=== PATIENT | female | born 2000 | race Caucasian/White ===

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

== ENCOUNTER 2022-01-28 10:33 | Emergency (ER) | payer OTHER ==
[2022-01-28 10:42] VITALS: RESP 16; TEMP 98
[2022-01-28] MEDS ORDERED: ACETAMINOPHEN TAB 500 MG TAB PO STA (10:56)
[2022-01-28] MEDS ORDERED: ONDANSETRON ODT 4 MG TAB PO STA (10:56)
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
[2022-01-28 14:16] VITALS: BP 139/83; PULSE 83
== END 2022-01-28 14:16 | disposition home or self-care (01) ==
LOC: EC 10:33
DX: S39.011A Strain of muscle, fascia and tendon of abdomen, initial encounter (principal); V89.2XXA Person injured in unspecified motor-vehicle accident, traffic, initial encounter
CPT/HCPCS: 70450; 72125; 99284

== ENCOUNTER 2023-03-18 19:32 | Emergency (ER) | payer OTHER ==
[2023-03-18 19:51] VITALS: BP 139/91; PULSE 90; RESP 18; TEMP 97.9
--- NOTE | 2023-03-18 20:08 | ED ---
Skin/Abscess/FB HPI - General Chief complaint: Skin/Abscess/Foreign Body Stated complaint: tick in belly Time Seen by Provider: 03/18/23 20:07 Source: patient, RN notes reviewed Mode of arrival: ambulatory Limitations: no limitations - History of Present Illness Initial comments: 22-year-old female presents emergency Department with chief complaint of tick on her abdomen. Patient states that she was laying on the grass yesterday states that she was discharging felt some better abdomen. Patient states that she knows a red spot in which she believes is a tick. - Related Data Previous Rx's Medication Instructions Recorded methocarbamoL [Robaxin] 500 mg PO BID PRN 4 Days #8 tab 01/28/22 Allergies Allergy/AdvReac Type Severity Reaction Status Date / Time No Known Allergies Allergy Verified 03/18/23 19:45 Review of Systems ROS Statement: Those systems with pertinent positive or pertinent negative responses have been documented in the HPI. ROS Other: All systems not noted in ROS Statement are negative. Past Medical History Past Medical History: No Reported History History of Any Multi-Drug Resistant Organisms: None Reported Past Surgical History: No Surgical Hx Reported Additional Past Surgical History / Comment(s): oral surgery Past Psychological History: No Psychological Hx Reported Smoking Status: Never smoker Past Alcohol Use History: None Reported Past Drug Use History: Marijuana General Exam Limitations: no limitations General appearance: alert, in no apparent distress Head exam: Present: atraumatic, normocephalic, normal inspection Eye exam: Present: normal appearance, PERRL, EOMI. Absent: scleral icterus, conjunctival injection, periorbital swelling ENT exam: Present: normal exam, normal oropharynx, mucous membranes moist Neck exam: Present: normal inspection, full ROM. Absent: tenderness, meningismus, lymphadenopathy Respiratory exam: Present: normal lung sounds bilaterally. Absent: respiratory distress, wheezes, rales, rhonchi, stridor Cardiovascular Exam: Present: regular rate, normal rhythm, normal heart sounds. Absent: systolic murmur, diastolic murmur, rubs, gallop, clicks GI/Abdominal exam: Present: other (Lower abdomen there is a small uptake noted with surrounding erythema) Course Vital Signs 03/18/23 19:43 Temperature 97.9 F Pulse Rate 90 Respiratory 18 Rate Blood Pressure 139/91 O2 Sat by Pulse 97 Oximetry Procedures - Procedures Initial comment: Lower abdomen using tick removal to tool, tick was removed with no complications in whole Medical Decision Making - Medical Decision Making Was pt. sent in by a medical professional or institution (LOUISE Aguirre, TRANSMISSION WORKER, urgent care, hospital, or fci...) When possible be specific @ -No Did you speak to anyone other than the patient for history (EMS, parent, family, police, friend...)? What history was obtained from this source @ -No Did you review nursing and triage notes (agree or disagree)? Why? @ -I reviewed and agree with nursing and triage notes Were old charts reviewed (outside hosp., previous admission, EMS record, old EKG, old radiological studies, urgent care reports/EKG's, fci records)? Report findings @ -No old charts were reviewed Differential Diagnosis (chest pain, altered mental status, abdominal pain women, abdominal pain men, vaginal bleeding, weakness, fever, dyspnea, syncope, headache, dizziness, GI bleed, back pain, seizure, CVA, palpatations, mental health, musculoskeletal)? @ -Tick bite, abscess EKG interpreted by me (3pts min.). @ -None] X-rays interpreted by me (1pt min.). @ -None done CT interpreted by me (1pt min.). @ -None done U/S interpreted by me (1pt. min.). @ -None done What testing was considered but not performed or refused? (CT, X-rays, U/S, labs)? Why? @ -None What meds were considered but not given or refused? Why? @ -None Did you discuss the management of the patient with other professionals (professionals i.e. LOUISE Aguirre, TRANSMISSION WORKER, lab, RT, psych nurse, outreach and education social worker, director trial, teacher, first officer, transport manager)? Give summary @ -No Was smoking cessation discussed for >3mins.? @ -No Was critical care preformed (if so, how long)? @ -No Were there social determinants of health that impacted care today? How? (Homelessness, low income, unemployed, alcoholism, drug addiction, transportation, low edu. Level, literacy, decrease access to med. care, skilled nursing, rehab)? @ -No Was there de-escalation of care discussed even if they declined (Discuss DNR or withdrawal of care, Hospice)? DNR status @ -No What co-morbidities impacted this encounter? (DM, HTN, Smoking, COPD, CAD, Cancer, CVA, ARF, Chemo, Hep., AIDS, mental health diagnosis, sleep apnea, morbid obesity)? @ -None Was patient admitted / discharged? Hospital course, mention meds given and route, prescriptions, significant lab abnormalities, going to OR and other pertinent info. @ -[Discharged patient had tick removed. Patient is concerned about possible Lyme disease and there was surrounding erythema patient was given prophylactic dose. Undiagnosed new problem with uncertain prognosis? @ -No Drug Therapy requiring intensive monitoring for toxicity (Heparin, Nitro, Insulin, Cardizem)? @ -No Were any procedures done? @ -No Diagnosis/symptom? @ -Tick bite Acute, or Chronic, or Acute on Chronic? @ -Acute Uncomplicated or complicated Uncomplicated Side effects of treatment? @ -No Exacerbation, Progression, or Severe Exacerbation? @ -No Poses a threat to life or bodily function? How? (Chest pain, [place], [place], pneumonia, PE, COPD, DKA, ARF, appy, cholecystitis, CVA, Diverticulitis, Homicidal, Suicidal, threat to staff... and all critical care pts) @ -No Disposition Clinical Impression: Embedded tick of abdominal wall Disposition: HOME SELF-CARE Condition: Stable Instructions (If sedation given, give patient instructions): Tick Bite (ED) Additional Instructions: Please return to the Emergency Department if symptoms worsen or any other concerns. Is patient prescribed a controlled substance at d/c from ED?: No Referrals: None,Stated [Primary Care Provider] - 1-2 days Time of Disposition: 20:08
[2023-03-18] MEDS ORDERED: DOXYCYCLINE 100 MG CAP PO STA (20:09)
== END 2023-03-18 20:35 | disposition home or self-care (01) ==
LOC: EC 19:32
DX: S30.861A Insect bite (nonvenomous) of abdominal wall, initial encounter (principal); F12.90 Cannabis use, unspecified, uncomplicated; W57.XXXA Bitten or stung by nonvenomous insect and other nonvenomous arthropods, initial encounter
CPT/HCPCS: 99282

== ENCOUNTER 2023-11-23 20:07 | Inpatient (IN) | payer OTHER ==
[2023-11-23] MEDS: SODIUM CHLORIDE 0.9% 1,000 ML IV STA (21:39)
[2023-11-23 21:54] LABS: Basophils % (A) 0 %; Eosinophils # (A) 0.1 k/uL (0-0.7); Eosinophils % (A) 1 %; HCT 36.1 % (34.0-46.0); HGB 12.4 gm/dL (11.4-16.0); Lymphocytes # (A) 1.2 k/uL (1.0-4.8); Lymphocytes % (A) 17 %; MCH 30.8 pg (25.0-35.0); MCHC 34.4 g/dL (31.0-37.0); MCV 89.5 fL (80.0-100.0); Mean Platelet Volume 8.1; Monocytes # (A) 0.6 k/uL (0-1.0); Monocytes % (A) 8 %; Neutrophils # (A) 5.1 k/uL (1.3-7.7); Neutrophils % (A) 72 %; Platelet Count 198 k/uL (150-450); RBC 4.04 m/uL (3.80-5.40); RDW 12.5 % (11.5-15.5)
[2023-11-23 22:11] LABS: ALT 16 U/L (4-34); AST 22 U/L (14-36); Acetaminophen <10.0 ug/mL; African American GFR (CKD) >90 (>60 ml/min/1.73 sqM); Albumin 4.2 g/dL (3.5-5.0); Alkaline Phosphatase 54 U/L (38-126); Anion Gap 5 mmol/L; Blood Urea Nitrogen 12 mg/dL (7-17); Calcium 9.2 mg/dL (8.4-10.2); Carbon Dioxide 24 mmol/L (22-30); Chloride 106 mmol/L (98-107); Glucose 70 mg/dL (74-99); Magnesium 1.8 mg/dL (1.6-2.3); Non-African American GFR(CKD) >90 (>60 ml/min/1.73 sqM); Salicylate <1.0 mg/dL; Sodium 135 mmol/L (137-145); Total Bilirubin 0.9 mg/dL (0.2-1.3); Total Protein 6.5 g/dL (6.3-8.2)
[2023-11-23 22:41] LABS: Appearance,Urine Cloudy (Clear); Bacteria,Urine Occasional /hpf; Bilirubin,Urine Negative (Negative); Blood,Urine Small (Negative); Calcium Oxalate Crystals,Urine Few /hpf; Color,Urine Yellow; Glucose,Urine (UA) Negative (Negative); Ketones,Urine 1+ (Negative); Leukocyte Esterase,Urine Small (Negative); Mucus,Urine Many /hpf; Nitrite,Urine Negative (Negative); Protein,Urine 1+ (Negative); RBC,Urine 5 /hpf (0-5); Specific Gravity,Urine 1.036 (1.001-1.035); Squamous Epithelial Cell,Urine 4 /hpf (0-4); WBC,Urine 7 /hpf (0-5)
[2023-11-23 23:03] LABS: Amphetamine Screen,Urine Not Detected (NotDetected); Barbiturate Screen,Urine Not Detected (NotDetected); Benzodiazepines Screen,Urine Detected (NotDetected); Cocaine Screen,Urine Not Detected (NotDetected); Methadone Screen, Urine Not Detected (NotDetected); Opiate Screen,Urine Not Detected (NotDetected); Oxycodone Screen, Urine Not Detected (NotDetected); Phencyclidine Screen,Urine Not Detected (NotDetected); Tricyclic Antidepressant,Urine Not Detected (NotDetected); Urn Cannabinoid Scrn Detected (NotDetected)
--- NOTE | 2023-11-23 23:50 | CT ---
EXAMINATION TYPE: CT brain wo con DATE OF EXAM: 11/23/2023 COMPARISON: Prior CT January 28, 2022 HISTORY: Pt coming to ER for new onset seizures. Pt experienced a seizure that was witnessed by famil y. Per EMS family stated that the Tonic/Clonic seizure lasted 3-4 minutes. Pt bit her tongue. Pt admi ts to smoking concentrated marijuana prior to seizure. Pt complaining of minor nausea. CT DLP: 1109.8 mGycm. Automated Exposure Control for Dose Reduction was Utilized. TECHNIQUE: CT scan of the head is performed without contrast. FINDINGS: There is no acute intracranial hemorrhage, mass effect, or midline shift identified. The ventricles and sulci are within normal limits in size. Gary-white matter differentiation is maintain ed. Nasal septum is deviated to right of midline there is The globes are intact and the visualized si nuses are clear. IMPRESSION: No acute intracranial hemorrhage or midline shift is seen.
[2023-11-24 00:08] LABS: Glucose,Whole Blood 97 mg/dL (70-110)
[2023-11-24] MEDS ORDERED: NALOXONE 0.4 MG/ML 1 ML VIAL IV PRN (00:25)
--- NOTE | 2023-11-24 00:27 | ED ---
Seizure HPI - General Chief Complaint: Seizure Stated Complaint: seizure Time Seen by Provider: 11/23/23 20:53 Source: EMS Mode of arrival: EMS Limitations: no limitations - History of Present Illness Initial Comments: 23-year-old female presenting with chief complaint of seizure. Patient was with her mother this evening when she had a witnessed tonic-clonic seizure that lasted for about 3 to 5 minutes according to her mother. She has no history of seizures. Patient did bite her tongue. She did not lose control of her bowel or bladder. She did smoke a large amount of marijuana this evening. Following the seizure she was initially tired and confused and also a bit nauseous, symptoms have improved now. Mother also reports that yesterday when she came to the patient's house the patient was confused and there were some things spread on the ground that looked as if she had dropped them, she is concerned that she may have had a seizure at that time as well. Patient does not remember any of this. No chest pain, difficulty breathing, abdominal pain, vomiting, vision or hearing changes, numbness, tingling, weakness, headache, neck pain. - Related Data Previous Rx's Medication Instructions Recorded methocarbamoL [Robaxin] 500 mg PO BID PRN 4 Days #8 tab 01/28/22 Allergies Allergy/AdvReac Type Severity Reaction Status Date / Time No Known Allergies Allergy Verified 11/23/23 20:25 Review of Systems ROS Statement: Those systems with pertinent positive or pertinent negative responses have been documented in the HPI. ROS Other: All systems not noted in ROS Statement are negative. Past Medical History Past Medical History: No Reported History History of Any Multi-Drug Resistant Organisms: None Reported Past Surgical History: No Surgical Hx Reported Additional Past Surgical History / Comment(s): oral surgery Past Psychological History: No Psychological Hx Reported Smoking Status: Never smoker Past Alcohol Use History: None Reported Past Drug Use History: Marijuana General Exam Limitations: no limitations General appearance: alert, in no apparent distress Head exam: Present: atraumatic, normocephalic, normal inspection Eye exam: Present: normal appearance, PERRL, EOMI. Absent: scleral icterus, conjunctival injection, periorbital swelling Neck exam: Present: normal inspection. Absent: tenderness Respiratory exam: Present: normal lung sounds bilaterally. Absent: respiratory distress, wheezes, rales, rhonchi, stridor Cardiovascular Exam: Present: regular rate, normal rhythm, normal heart sounds. Absent: systolic murmur, diastolic murmur, rubs, gallop, clicks Extremities exam: Present: normal inspection, full ROM Neurological exam: Present: alert, oriented X3 Expanded Patient oriented to: Present: person, place, time Speech: Present: fluid speech Cranial nerves: EOM's Intact: Normal Cerebellar function: Finger to Nose: Normal, Heel to Saavedra: Normal Sensory exam: Upper Extremity Light Touch: Normal, Lower Extremity Light Touch: Normal Motor strength exam: RUE: 5, LUE: 5, RLE: 5, LLE: 5 Eye Response: (4) open spontaneously Motor Response: (6) obeys commands Verbal Response: (5) oriented Nettie Total: 15 Psychiatric exam: Present: normal affect, normal mood Skin exam: Present: warm, dry Course Vital Signs 11/23/23 11/24/23 20:18 01:27 Temperature 98.9 F Pulse Rate 93 64 Respiratory 18 16 Rate Blood Pressure 120/75 110/59 O2 Sat by Pulse 100 Oximetry Medical Decision Making - Medical Decision Making Was pt. sent in by a medical professional or institution (, PA, INTERNAL SALES, urgent care, hospital, or retirement...) When possible be specific @ -No Did you speak to anyone other than the patient for history (EMS, parent, family, police, friend...)? What history was obtained from this source @ -Mother at bedside Did you review nursing and triage notes (agree or disagree)? Why? @ -I reviewed and agree with nursing and triage notes Were old charts reviewed (outside hosp., previous admission, EMS record, old EKG, old radiological studies, urgent care reports/EKG's, retirement records)? Report findings @ -No old charts were reviewed Differential Diagnosis (chest pain, altered mental status, abdominal pain women, abdominal pain men, vaginal bleeding, weakness, fever, dyspnea, syncope, headache, dizziness, GI bleed, back pain, seizure, CVA, palpatations, mental health, musculoskeletal)? @ -MDM Differential Seizure: Recurrent seizure disorder, febrile seizure, alcohol withdrawal, stimulants, meningitis, encephalitis, intercranial hemorrhage, intracranial tumor, stroke, eclampsia, thyrotoxicosis, hypocalcemia, hyponatremia, hypernatremia, hy pomagnesemia, psychogenic this is not meant to be an all-inclusive list EKG interpreted by me (3pts min.). @ -As above X-rays interpreted by me (1pt min.). @ -None done CT interpreted by me (1pt min.). @ -CT shows no acute intracranial hemorrhage or midline shift U/S interpreted by me (1pt. min.). @ -None done What testing was considered but not performed or refused? (CT, X-rays, U/S, lab s)? Why? @ -None What meds were considered but not given or refused? Why? @ -None Did you discuss the management of the patient with other professionals (professionals i.e. DrBrock, PA, INTERNAL SALES, lab, RT, psych nurse, social media intern, business rules developer, teacher, financial services officer, mental health case manager)? Give summary @ -I spoke with Dr. Kenney who accepts admission Was smoking cessation discussed for >3mins.? @ -No Was critical care preformed (if so, how long)? @ -No Were there social determinants of health that impacted care today? How? (Homelessness, low income, unemployed, alcoholism, drug addiction, transportation, low edu. Level, literacy, decrease access to med. care, snf, rehab)? @ -No Was there de-escalation of care discussed even if they declined (Discuss DNR or withdrawal of care, Hospice)? DNR status @ -No What co-morbidities impacted this encounter? (DM, HTN, Smoking, COPD, CAD, Cancer, CVA, ARF, Chemo, Hep., AIDS, mental health diagnosis, sleep apnea, morbid obesity)? @ -None Was patient admitted / discharged? Hospital course, mention meds given and route, prescriptions, significant lab abnormalities, going to OR and other pertinent info. @ -23-year-old female presenting for evaluation after seizure this evening. Patient has no history of seizures. History and physical examination are conduc leisa, there are no focal neurological deficits. No leukocytosis or anemia. Glucose initially 70, recheck 97. CMP is unremarkable. Urine shows signs of contamination. Negative hCG. Urine toxicology positive for benzodiazepine and marijuana. Negative salicylate and acetaminophen level. Considering this is the patient's first seizure and she may have had a seizure less than 24 hours ago she will be admitted for evaluation by neurology. She is agreeable with this plan. I discussed this case with my attending Dr. Pratt Undiagnosed new problem with uncertain prognosis? @ -No Drug Therapy requiring intensive monitoring for toxicity (Heparin, Nitro, Insulin, Cardizem)? @ -No Were any procedures done? @ -No Diagnosis/symptom? @ -New onset seizure Acute, or Chronic, or Acute on Chronic? @ -Acute Uncomplicated (without systemic symptoms) or Complicated (systemic symptoms)? @ -Complicated Side effects of treatment? @ -No Exacerbation, Progression, or Severe Exacerbation? @ -No Poses a threat to life or bodily function? How? (Chest pain, [place], [place], pneumonia, PE, COPD, DKA, ARF, appy, cholecystitis, CVA, Diverticulitis, Homicidal, Suicidal, threat to staff... and all critical care pts) @ -Yes - Lab Data Result diagrams: 11/23/23 21:39 11/23/23 21:39 Lab Results 11/23/23 11/23/23 11/23/23 Range/Units 21:09 21:09 21:39 WBC 7.0 (3.8-10.6) k/uL RBC 4.04 (3.80-5.40) m/uL Hgb 12.4 (11.4-16.0) gm/dL Hct 36.1 (34.0-46.0) % MCV 89.5 (80.0-100.0) fL MCH 30.8 (25.0-35.0) pg MCHC 34.4 (31.0-37.0) g/dL RDW 12.5 (11.5-15.5) % Plt Count 198 (150-450) k/uL MPV 8.1 Neutrophils % 72 % Lymphocytes % 17 % Monocytes % 8 % Eosinophils % 1 % Basophils % 0 % Neutrophils # 5.1 (1.3-7.7) k/uL Lymphocytes # 1.2 (1.0-4.8) k/uL Monocytes # 0.6 (0-1.0) k/uL Eosinophils # 0.1 (0-0.7) k/uL Basophils # 0.0 (0-0.2) k/uL Sodium (137-145) mmol/L Potassium (3.5-5.1) mmol/L Chloride (98-107) mmol/L Carbon Dioxide (22-30) mmol/L Anion Gap mmol/L BUN (7-17) mg/dL Creatinine (0.52-1.04) mg/dL Est GFR (CKD-EPI)AfAm (>60 ml/min/1.73 sqM) Est GFR (CKD-EPI)NonAf (>60 ml/min/1.73 sqM) Glucose (74-99) mg/dL POC Glucose (mg/dL) (70-110) mg/dL POC Glu Moisture Machine Tender ID Calcium (8.4-10.2) mg/dL Magnesium (1.6-2.3) mg/dL Total Bilirubin (0.2-1.3) mg/dL AST (14-36) U/L ALT (4-34) U/L Alkaline Phosphatase (38-126) U/L Total Protein (6.3-8.2) g/dL Albumin (3.5-5.0) g/dL Urine Color Yellow Urine Appearance Cloudy H (Clear) Urine pH 6.0 (5.0-8.0) Ur Specific [place] 1.036 H (1.001-1.035) Urine Protein 1+ H (Negative) Urine Glucose (UA) Negative (Negative) Urine Ketones 1+ H (Negative) Urine Blood Small H (Negative) Urine Nitrite Negative (Negative) Urine Bilirubin Negative (Negative) Urine Urobilinogen 2.0 (<2.0) mg/dL Ur Leukocyte Esterase Small H (Negative) Urine RBC 5 (0-5) /hpf Urine WBC 7 H (0-5) /hpf Ur Squamous Epith Cells 4 (0-4) /hpf Calcium Oxalate Crystal Few H (None) /hpf Urine Bacteria Occasional H (None) /hpf Urine Mucus Many H (None) /hpf Urine HCG, Qual Not Detected (Not Detectd) Salicylates mg/dL Urine Opiates Screen Not Detected (NotDetected) Ur Oxycodone Screen Not Detected (NotDetected) Urine Methadone Screen Not Detected (NotDetected) Acetaminophen ug/mL Ur Barbiturates Screen Not Detected (NotDetected) U Tricyclic Antidepress Not Detected (NotDetected) Ur Phencyclidine Scrn Not Detected (NotDetected) Ur Amphetamines Screen Not Detected (NotDetected) U Methamphetamines Scrn Not Detected (NotDetected) U Benzodiazepines Scrn Detected H (NotDetected) Urine Cocaine Screen Not Detected (NotDetected) U Marijuana (THC) Screen Detected H (NotDetected) 11/23/23 11/24/23 Range/Units 21:39 00:06 WBC (3.8-10.6) k/uL RBC (3.80-5.40) m/uL Hgb (11.4-16.0) gm/dL Hct (34.0-46.0) % MCV (80.0-100.0) fL MCH (25.0-35.0) pg MCHC (31.0-37.0) g/dL RDW (11.5-15.5) % Plt Count (150-450) k/uL MPV Neutrophils % % Lymphocytes % % Monocytes % % Eosinophils % % Basophils % % Neutrophils # (1.3-7.7) k/uL Lymphocytes # (1.0-4.8) k/uL Monocytes # (0-1.0) k/uL Eosinophils # (0-0.7) k/uL Basophils # (0-0.2) k/uL Sodium 135 L (137-145) mmol/L Potassium 4.0 (3.5-5.1) mmol/L Chloride 106 (98-107) mmol/L Carbon Dioxide 24 (22-30) mmol/L Anion Gap 5 mmol/L BUN 12 (7-17) mg/dL Creatinine 0.72 (0.52-1.04) mg/dL Est GFR (CKD-EPI)AfAm >90 (>60 ml/min/1.73 sqM) Est GFR (CKD-EPI)NonAf >90 (>60 ml/min/1.73 sqM) Glucose 70 L (74-99) mg/dL POC Glucose (mg/dL) 97 (70-110) mg/dL POC Glu Moisture Machine Tender ID David Mariscal Calcium 9.2 (8.4-10.2) mg/dL Magnesium 1.8 (1.6-2.3) mg/dL Total Bilirubin 0.9 (0.2-1.3) mg/dL AST 22 (14-36) U/L ALT 16 (4-34) U/L Alkaline Phosphatase 54 (38-126) U/L Total Protein 6.5 (6.3-8.2) g/dL Albumin 4.2 (3.5-5.0) g/dL Urine Color Urine Appearance (Clear) Urine pH (5.0-8.0) Ur Specific [place] (1.001-1.035) Urine Protein (Negative) Urine Glucose (UA) (Negative) Urine Ketones (Negative) Urine Blood (Negative) Urine Nitrite (Negative) Urine Bilirubin (Negative) Urine Urobilinogen (<2.0) mg/dL Ur Leukocyte Esterase (Negative) Urine RBC (0-5) /hpf Urine WBC (0-5) /hpf Ur Squamous Epith Cells (0-4) /hpf Calcium Oxalate Crystal (None) /hpf Urine Bacteria (None) /hpf Urine Mucus (None) /hpf Urine HCG, Qual (Not Detectd) Salicylates <1.0 mg/dL Urine Opiates Screen (NotDetected) Ur Oxycodone Screen (NotDetected) Urine Methadone Screen (NotDetected) Acetaminophen <10.0 ug/mL Ur Barbiturates Screen (NotDetected) U Tricyclic Antidepress (NotDetected) Ur Phencyclidine Scrn (NotDetected) Ur Amphetamines Screen (NotDetected) U Methamphetamines Scrn (NotDetected) U Benzodiazepines Scrn (NotDetected) Urine Cocaine Screen (NotDetected) U Marijuana (THC) Screen (NotDetected) Disposition Clinical Impression: New onset seizure Disposition: ADMITTED IP TO THIS HOSP Condition: Fair Time of Disposition: 00:26
[2023-11-24] MEDS: SODIUM CHLORIDE 0.9% 1,000 ML IV SCH (01:23)
--- NOTE | 2023-11-24 07:58 | P.HPIM ---
History of Present Illness This is a pleasant 23 years old female from [place] who was visiting [facility], she has history of depression on Abilify and Wellbutrin, about 2 weeks ago she was still feeling down and thought Wellbutrin was not working so her psychiatrist increased her dose 300 mg up to 450 mg daily She presents because of seizure-like activity for 2 days on Friday and Friday. Patient cannot remember the events, she remembers only being in the ambulance. As per documents the patient mother witnessed her having tonic-clonic seizure about 3 to 5 minutes with tongue biting but no urine or bowel incontinence. On Friday she found her on the stairs but that was in [place], yesterday she had another seizure witnessed by the mother so she brought her to the hospital. Also looks like the patient has some postictal confusion and tiredness which is now resolved Currently patient is fully awake and oriented to time place person, she denies headache dizziness, no weakness numbness, no blurred vision or slurred speech No chest pain or dyspnea. No change in urine or bowel habits. No fever or chills She denies smoking alcohol. She smokes marijuana. She denies feeling signs symptoms of depression currently, she denies delusion or hallucination. She denies suicidal or homicidal ideation She is hemodynamically stable Labs reviewed and showed unremarkable CBC, BMP, LFT, urine sample looks some concentrated with patient with no signs symptoms of UTI Urine drug screen is positive for marijuana and benzodiazepine Negative salicylate and acetaminophen levels CT of the brain is negative for acute process EKG showing sinus rhythm at [address]-T changes Review of Systems Review of systems CONSTITUTIONAL: No fever, no malaise, no fatigue. HEENT: No recent visual problems or hearing problems. Denied any sore throat. CARDIOVASCULAR: No orthopnea, PND, no palpitations, no syncope. PULMONARY: No shortness of breath, no cough, no hemoptysis. GASTROINTESTINAL: No diarrhea, no nausea, no vomiting, no abdominal pain. Normoactive bowel sounds. NEUROLOGICAL: No headaches, no weakness, no numbness. HEMATOLOGICAL: Denies any bleeding or petechiae. GENITOURINARY: Denies any burning micturition, frequency, or urgency. MUSCULOSKELETAL/RHEUMATOLOGICAL: Denies any joint pain, swelling, or any muscle pain. ENDOCRINE: Denies any polyuria or polydipsia. Past Medical History Past Medical History: No Reported History History of Any Multi-Drug Resistant Organisms: None Reported Past Surgical History: No Surgical Hx Reported Additional Past Surgical History / Comment(s): oral surgery Past Psychological History: No Psychological Hx Reported Smoking Status: Never smoker Past Alcohol Use History: None Reported Past Drug Use History: Marijuana Medications and Allergies Home Medications Medication Instructions Recorded Confirmed Type methocarbamoL [Robaxin] 500 mg PO BID PRN 4 Days #8 tab 01/28/22 Rx Allergies Allergy/AdvReac Type Severity Reaction Status Date / Time No Known Allergies Allergy Verified 11/23/23 20:25 Physical Exam Vitals: Vital Signs Temp Pulse Resp BP Pulse Ox 11/24/23 06:22 69 16 105/64 99 11/24/23 01:27 64 16 110/59 100 11/23/23 20:18 98.9 F 93 18 120/75 Intake and Output 11/23/23 11/24/23 11/24/23 22:59 06:59 14:59 Other: Weight 90.718 kg GENERAL: The patient is alert and oriented x3, not in any acute distress. Well developed, well nourished. HEENT: Pupils are round and equally reacting to light. EOMI. No scleral icterus. No conjunctival pallor. Normocephalic, atraumatic. No pharyngeal erythema. No thyromegaly. CARDIOVASCULAR: S1 and S2 present. No murmurs, rubs, or gallops. PULMONARY: Chest is clear to auscultation, no wheezing , no crackles. ABDOMEN: Soft, nontender, nondistended, normoactive bowel sounds. No palpable organomegaly. MUSCULOSKELETAL: No joint swelling or deformity. EXTREMITIES: No cyanosis, clubbing, or pedal edema. NEUROLOGICAL: Gross neurological examination did not reveal any focal deficits. SKIN: No rashes. no petechiae. Results CBC & Chem 7: 11/23/23 21:39 11/23/23 21:39 Labs: Abnormal Lab Results - Last 24 Hours (Table) 11/23/23 11/23/23 Range/Units 21:09 21:39 Sodium 135 L (137-145) mmol/L Glucose 70 L (74-99) mg/dL Urine Appearance Cloudy H (Clear) Ur Specific [place] 1.036 H (1.001-1.035) Urine Protein 1+ H (Negative) Urine Ketones 1+ H (Negative) Urine Blood Small H (Negative) Ur Leukocyte Esterase Small H (Negative) Urine WBC 7 H (0-5) /hpf Calcium Oxalate Crystal Few H (None) /hpf Urine Bacteria Occasional H (None) /hpf Urine Mucus Many H (None) /hpf U Benzodiazepines Scrn Detected H (NotDetected) U Marijuana (THC) Screen Detected H (NotDetected) Assessment and Plan Assessment: New onset seizure-like activity secondary to psychiatric medication. Patient on Abilify and Wellbutrin dose increased 2 weeks prior to hospitalization Major depression disorder on Abilify and Wellbutrin at home Substance abuse with marijuana and patient was counseled to quit and she agrees Plan: Patient currently is stable She was not started on antiseizure medication Neurologist consulted Also will consult psychiatrist to adjust her psych medication in view of her new seizure DVT prophylaxis, low risk, no need for subcu heparin GI prophylaxis, low risk Prognosis is fair
[2023-11-24 09:32] LABS: HCG,Qualitative Serum Not Detected
[2023-11-24] MEDS ORDERED: ONDANSETRON 4 MG in SODIUM CHLORIDE 0.9% 50 ML IVPB PRN (10:39)
[2023-11-24] MEDS: ONDANSETRON 4 MG/2 ML VIAL IVP PRN (11:31)
--- NOTE | 2023-11-25 09:57 | P.CNNES ---
History of Present Illness Consult date: 11/24/23 Requesting physician: Roxanne Panda Reason for Consult: Seizure activity History of Present Illness: Patient is a 23-year-old right-handed female came to the hospital by ambulance yesterday at 8:07 PM for new onset seizure. Patient had a witnessed seizure on Friday at around 7:30 PM. Patient was standing at the counter in usual state of health, and without any warning she fell and had a convulsion, in which she bit her tongue. There was no loss of control of urine.. Patient's mother witnessed the seizure. She called the ambulance and was brought to the hospital. As per EMS flowsheet, when they arrived, found patient with family stating that patient had a witnessed seizure that was described as grand mal in nature that lasted for about 3 minutes. Patient has no history of seizures but is on new antidepressant Abilify. Patient appeared to be in postictal state and is confused. She was only alert and oriented x 1. Family mentioned that patient has smoked some "dabs" just prior to episode. Patient appeared to be in postictal state at that time. Patient was able to answer questions but at a slower response. Patient's blood glucose was 98. During assessment patient was found to have what appears to be multiple self-inflicted wounds in different stages of healing located in her legs and arms. Patient's blood pressure at the scene was 126/80, pulse rate 116, respiration 20 saturation 97%. Patient states that she probably had unwitnessed seizure the day prior on Friday. Patient remembers waking up in the morning as usual, she walked the dog, and then she found herself sitting on the stairs, and had bitten her tongue. There was stuff all over the floor. She does not remember how she got to the stairs and how those things got on the floor. Patient admits to having some headache on Friday, 10/31, frontal pressure, Excedrin did help. Patient sometimes gets headache, but those are different type, involves the back of the head and neck. Patient has been diagnosed with borderline personality disorder, and has been on Abilify since March 2023. About a month ago she was started on Wellbutrin 300 mg at bedtime, and a week later it was increased to 450 mg at bedtime. Blood test shows normal CBC, sodium 135 glucose 70, renal and hepatic panels are normal. TSH normal. UA shows small amount of leukocyte esterase. Urine drug screen positive for benzodiazepine and marijuana. CT head showed no acute intracranial process. EKG shows sinus rhythm. Patient denies any alcohol use. Smokes marijuana occasionally. She is student at veterinary medicine. Denies any tobacco use. Denies any drugs. Patient denies any fever or chills. Patient denies any family history of epilepsy. Patient has history of couple concussions when she was cheerleading, 5 years ago. Review of Systems As mentioned in HPI. All pertinent positives and negatives mentioned in HPI. Past Medical History Past Medical History: No Reported History History of Any Multi-Drug Resistant Organisms: None Reported Past Surgical History: No Surgical Hx Reported Additional Past Surgical History / Comment(s): oral surgery Past Psychological History: No Psychological Hx Reported Smoking Status: Never smoker Past Alcohol Use History: None Reported Past Drug Use History: Marijuana Medications and Allergies Home Medications Medication Instructions Recorded Confirmed Type ARIPiprazole [Abilify] 5 mg PO DAILY 11/24/23 11/24/23 History LORazepam [Ativan] 2 mg PO TID PRN 11/24/23 11/24/23 History Loxapine Succinate [Loxapine] 25 mg PO Q4H PRN 11/24/23 11/24/23 History buPROPion XL [Wellbutrin XL] 450 mg PO DAILY 11/24/23 11/24/23 History Allergies Allergy/AdvReac Type Severity Reaction Status Date / Time No Known Allergies Allergy Verified 11/24/23 12:39 Physical Examination - Vital Signs Vital Signs: Vital Signs Temp Pulse Resp BP Pulse Ox 11/24/23 16:00 98.7 F 74 16 94/68 98 11/24/23 11:35 71 20 111/77 99 11/24/23 08:56 71 20 115/68 100 11/24/23 06:22 69 16 105/64 99 11/24/23 01:27 64 16 110/59 100 11/23/23 20:18 98.9 F 93 18 120/75 Patient is a young female, in no acute distress. Patient is alert awake oriented to time place and person. Speech and language functions are normal. Patient can name and repeat very well. No aphasia or dysarthria. Attention, concentration and fund of knowledge is adequate. On cranial nerve examination, pupils are equal, round and reacting to light, vi sual kincaid are full on confrontation, with no neglect on double simultaneous stimulation. Extraocular muscles are intact with no nystagmus. Face is symmetric, tongue protrudes to the midline. Palatal elevation and sensation normal, hearing and shoulder shrug normal, facial sensation normal. Patient does have evidence of mild tongue bite saurav on the tip of the tongue. On muscle strength testing, there is no pronator drift and the strength is normal in arms and legs distally and proximally. Deep tendon reflexes are symmetric plus all over and plantars downgoing. Sensory to touch is equal with no neglect on double simultaneous stimulation. Cerebellar function showed no ataxia for [id number]-[id number] testing. No dysdiadochokinesia. No ataxia for [id number] testing on either side. Tone and bulk of muscles normal. Gait deferred.. On general examination, there is no carotid bruit or murmur, S1-S2 audible. Chest is clear on consultation. Abdomen is soft nontender. No organomegaly, bowel sounds present. Peripheral pulses are present. No peripheral edema. Results - Laboratory Findings CBC and BMP: 11/23/23 21:39 11/23/23 21:39 Abnormal Lab Findings: Abnormal Labs 11/23/23 11/23/23 21:09 21:39 Sodium 135 L Glucose 70 L Urine Appearance Cloudy H Ur Specific [place] 1.036 H Urine Protein 1+ H Urine Ketones 1+ H Urine Blood Small H Ur Leukocyte Esterase Small H Urine WBC 7 H Calcium Oxalate Crystal Few H Urine Bacteria Occasional H Urine Mucus Many H U Benzodiazepines Scrn Detected H U Marijuana (THC) Screen Detected H Assessment and Plan Assessment: * New onset seizure, perhaps provoked due to Wellbutrin. Patient states that Wellbutrin was started a month ago, which may have contributed to the seizure. * Marijuana use * Borderline personality disorder (as per patient report) Plan: * Patient's seizure was likely provoked due to Wellbutrin. Recommended to stop Wellbutrin completely. * We will perform seizure workup including an MRI of the brain with and without contrast, and EEG. * If the above workup is negative, would not place on antiepileptic medication. * Patient was informed of [place] state law of no driving unless seizure-free for 6 months, climbing ladders or operating dangerous machinery, or unsupervised swimming. * Neurology will follow. * Thank you for the consult.
--- NOTE | 2023-11-25 10:54 | P.PN ---
Subjective This is a pleasant 23 years old female from [place] who was visiting [facility], she has history of depression on Abilify and Wellbutrin, about 2 weeks ago she was still feeling down and thought Wellbutrin was not working so her psychiatrist increased her dose 300 mg up to 450 mg daily She presents because of seizure-like activity for 2 days on Friday and Friday. Patient cannot remember the events, she remembers only being in the ambulance. As per documents the patient mother witnessed her having tonic-clonic seizure about 3 to 5 minutes with tongue biting but no urine or bowel incontinence. On Friday she found her on the stairs but that was in [place], yesterday she had another seizure witnessed by the mother so she brought her to the hospital. Also looks like the patient has some postictal confusion and tiredness which is now resolved Currently patient is fully awake and oriented to time place person, she denies headache dizziness, no weakness numbness, no blurred vision or slurred speech No chest pain or dyspnea. No change in urine or bowel habits. No fever or chills She denies smoking alcohol. She smokes marijuana. She denies feeling signs symptoms of depression currently, she denies delusion or hallucination. She denies suicidal or homicidal ideation She is hemodynamically stable Labs reviewed and showed unremarkable CBC, BMP, LFT, urine sample looks some concentrated with patient with no signs symptoms of UTI Urine drug screen is positive for marijuana and benzodiazepine Negative salicylate and acetaminophen levels CT of the brain is negative for acute process EKG showing sinus rhythm at [address]-T changes 11/25/2023 Patient has no more seizure-like like activity No other new complaint Patient and mother at bedside were told to avoid Wellbutrin, psychiatrist will evaluate the patient MRI and EEG are pending Review of systems CONSTITUTIONAL: No fever, no malaise, no fatigue. HEENT: No recent visual problems or hearing problems. Denied any sore throat. CARDIOVASCULAR: No orthopnea, PND, no palpitations, no syncope. PULMONARY: No shortness of breath, no cough, no hemoptysis. GASTROINTESTINAL: No diarrhea, no nausea, no vomiting, no abdominal pain. Normoactive bowel sounds. NEUROLOGICAL: No headaches, no weakness, no numbness. Active Medications Generic Name Dose Route Start Last Admin Trade Name Freq PRN Reason Stop Dose Admin Sodium Chloride 1,000 mls @ 75 mls/hr 09/02/24 00:30 11/25/23 00:43 Saline 0.9% IV 75 mls/hr .[id number] ANNMARIE Administration Naloxone HCl 0.2 mg 11/24/23 00:25 Naloxone 0.4 Mg/Ml 1 Ml Vial IV Q2M PRN Opioid Reversal Ondansetron HCl 4 mg 11/24/23 10:40 11/24/23 11:31 Ondansetron 4 Mg/2 Ml Vial IVP 4 mg Q6H PRN Administration NAUSEA/VOMITING Objective - Vital Signs Vital signs: Vital Signs Temp 98.9 F 11/24/23 18:26 Pulse 53 L 11/25/23 06:18 Resp 18 11/25/23 06:18 BP 113/59 11/25/23 06:18 Pulse Ox 99 11/25/23 06:18 FiO2 - Exam GENERAL: The patient is alert and oriented x3, not in any acute distress. Well developed, well nourished. HEENT: Pupils are round and equally reacting to light. EOMI. No scleral icterus. No conjunctival pallor. Normocephalic, atraumatic. No pharyngeal erythema. No thyromegaly. CARDIOVASCULAR: S1 and S2 present. No murmurs, rubs, or gallops. PULMONARY: Chest is clear to auscultation, no wheezing , no crackles. ABDOMEN: Soft, nontender, nondistended, normoactive bowel sounds. No palpable organomegaly. MUSCULOSKELETAL: No joint swelling or deformity. EXTREMITIES: No cyanosis, clubbing, or pedal edema. NEUROLOGICAL: Gross neurological examination did not reveal any focal deficits. SKIN: No rashes. no petechiae. - Labs CBC & Chem 7: 11/23/23 21:39 11/23/23 21:39 Assessment and Plan Assessment: New onset seizure-like activity secondary to psychiatric medication. Patient on Abilify and Wellbutrin dose increased 2 weeks prior to hospitalization Major depression disorder on Abilify and Wellbutrin at home Substance abuse with marijuana and patient was counseled to quit and she agrees Plan: Patient currently with no more seizure activities She was not started on antiseizure medication MRI and EEG of the brain pending Neurologist consulted Also will consult psychiatrist to adjust her psych medication in view of her new seizure Avoid Wellbutrin DVT prophylaxis, low risk, no need for subcu heparin GI prophylaxis, low risk Prognosis is fair
--- NOTE | 2023-11-25 13:51 | EEG ---
ELECTROENCEPHALOGRAM REPORT PREAMBLE: This is a 23-year-old female with new-onset seizure. The patient had 2 seizures. CURRENT MEDICATIONS: 1. Abilify. 2. Wellbutrin 450 mg at bedtime. EEG FINDINGS: This is a 21-channel digital EEG recorded with video component, utilizing 10/20 international system with referential and bipolar montages. Background consists of well-developed, moderately well regulated, moderate amplitude, 10 hertz alpha, seen in posterior head region. Background is posterior dominant and reactive to eye opening and closing. Frequent bifrontal slowing in moderate amplitude 3-4 hertz theta range was seen in bifrontal region. Intermittent periods of generalized disorganization was seen lasting for several seconds. There is 1 episode of high-amplitude of 3 hertz generalized delta slowing lasting for about 1 second. No definitive epileptiform activity was seen. Photic driving response was not clearly seen. Different stages of sleep were not seen. No electrographic seizure was recorded. IMPRESSION: Abnormal EEG due to, 1. Frequent bifrontal slowing, suggestive of focal cortical neuronal dysfunction. 2. Intermittent periods of disorganization, suggestive of mild generalized cerebral dysfunction as can be seen with encephalopathy. 3. There is 1 episode of high-amplitude of 3 hertz generalized delta slowing lasting for about 1 second. This may suggest convulsive tendency. 4. No clear-cut epileptiform activity was seen. However, strongly recommend prolonged EEG for further evaluation. MMODL / YASMEENN: [id number] / MORA
--- NOTE | 2023-11-25 13:55 | MR ---
EXAMINATION TYPE: MR brain wo/w con DATE OF EXAM: 11/25/2023 1:44 PM CLINICAL INDICATION: Female, 23 years old with history of New onset seizure; COMPARISON: 11/23/2023 05/22/2018 MRI TECHNIQUE: Multi planar, multi sequence imaging was performed through the brain including: T1, T2, In version recovery, susceptibility weighted imaging and gradient echo imaging and Diffusion weighted im aging. The patient was then given intravenous contrast and multi planar, T1 fat-saturation images wer e obtained. IV Contrast: 9 cc Gadavist FINDINGS: Similar appearance to the pituitary gland given differences in technique compared to 05/23/19 19. No discrete hypoenhancing mass visualized. There is similar bulging of the superior margin of the pituitary stalk. The enriquez-white junctions, ventricular system, basal cisterns appear unremarkable. Diffusion-weighted imaging shows no evidence of restricted diffusion to suggest acute/subacute infarct. Intracranial ar terial flow voids are maintained. Midline structures show no abnormality. The susceptibility weighted images do not reveal any evidence for micro-hemorrhage. After administration of gadolinium, no abnor mal enhancement is seen. The bone marrow signal is within normal limits. Paranasal sinuses and mastoid air cells: No significant paranasal sinus disease. Visualized orbits: Orbital contents are intact. IMPRESSION: 1. No evidence of intracranial mass, acute/subacute infarct, or abnormal enhancement. 2. Stable appearance of the pituitary gland compared to prior given differences in slice selection a nd technique. No discrete mass in the pituitary the family visualized however there is bulging of the superior margin.
[2023-11-25] MEDS: levETIRAcetam IV 500 MG/5 ML VIAL IVP STA (17:46)
[2023-11-25] MEDS: levETIRAcetam 500 MG TAB PO SCH (20:10)
[2023-11-26] MEDS ORDERED: ACETAMINOPHEN TAB 325 MG TAB PO PRN (01:32)
[2023-11-26 03:24] VITALS: RESP 14
--- NOTE | 2023-11-26 11:07 | P.PN ---
Subjective Progress Note Date: 11/25/23 Patient was seen for a follow-up. Patient denies any further seizures. On obtaining some more details about her seizures, it appears patient states that after she passed out in the kitchen, and had a seizure, next thing she remembers is sitting in the ambulance almost near the hospital. The seizure its elf lasted for about 5 minutes (reported to her) but her postictal state lasted for about 40 minutes. Objective - Vital Signs Vital signs: Vital Signs Temp 98 F 11/25/23 11:03 Pulse 63 11/25/23 11:03 Resp 18 11/25/23 11:03 BP 110/82 11/25/23 11:03 Pulse Ox 65 L 11/25/23 11:03 FiO2 - Exam Mental status, speech and language functions are normal. Cranial nerves are n ormal. - Labs CBC & Chem 7: 11/23/23 21:39 11/23/23 21:39 Assessment and Plan Assessment: * New onset seizure, perhaps provoked due to Wellbutrin. Patient states that Wellbutrin was started a month ago, which may have contributed to the seizure. * Marijuana use * Borderline personality disorder (as per patient report) Plan: * Patient's seizure was likely provoked due to Wellbutrin. Recommended to stop Wellbutrin completely. * MRI brain with and without contrast revealed no evidence of intracranial mass, acute/subacute infarct or abnormal enhancement. Stable appearance of the pituitary gland compared to prior given differences in slice selection and technique. No discrete mass in the pituitary, however there is bulging of the superior margin. * EEG was abnormal due to frequent bifrontal slowing suggestive of focal cortical neuronal dysfunction. Intermittent periods of disorganization, suggestive of mild generalized cerebral dysfunction as can be seen with encephalopathy. No clear-cut epileptiform activity was seen. However strongly recommend prolonged EEG for further evaluation. * Patient denies headache. Denies any alteration in mentation. We discussed about lumbar puncture to evaluate for possible cause of new onset headache, but patient declined. Patient is afebrile, white cells are normal, no signs of infection. Neck is supple. No real indication for LP. * As patient's EEG was abnormal, we will place her on antiepileptic medication for now. Patient was given Keppra 1000 mg IV x 1 dose followed by Keppra 500 mg twice daily. * Patient was informed of [place] state law of no driving unless seizure-free for 6 months, climbing ladders or operating dangerous machinery, or unsupervised swimming. * Patient to follow-up with neurologist outpatient. Patient will need prolonged EEG as an outpatient. If subsequent EEG comes back normal, then potentially Keppra can be weaned off, but would defer to the neurologist treating her outpatient. * Neurologically clear for discharge.
[2023-11-26 11:30] VITALS: BP 115/67; PULSE 66; TEMP 98.2
--- NOTE | 2023-11-26 17:08 | P.CN ---
Psychiatric Consult - . Consult date: 11/25/23 Consult:: 11/25/23 17:06 CONSULTATION identifying Data: The patient is a 25 years old, white female, who lives in [place], [place]. Reason for admission: Seizure disorder. History of present illness: The patient was brought to the emergency department with c/o seizures. She was seen in ER. During this evaluation, the patient noted that she moved to [place] 6 months ago to be united with her 6 months ago. She has been for two years. Her is [place]. She has known him for 6 years. The patient noted that she has had difficult time after moving there. She starting feeling depressed and sought help from a psychiatrist. She sees this psychiatrist in person every month. Her last visit was 2 weeks ago. She is being prescribed Wellbutrin 450 mg daily, Abilify 5 mg daily Loxapine 25 mg at bedtime and Ativan 2 mg. She has been compliant with her medications. The patient noted that she started cutting herself 6 months ago due frustration and age/marital discord. Last time she cut herself was a week ago. She has no intention to kill herself. The patient noted that she feels sad, frustrated, anxious, and angry. Her sleep is impaired but with medications she sleeps adequately. She denied feelings of worthlessness, hopelessness, guilt feeling, suicidal or homicidal ideations or intent. She denied any symptoms consistent with psychosis. During this evaluation, the patient reported On leading questions admitted to depression and anxiety. Denied hopelessness, worthlessness, suicidal or homicidal ideations. The patient denied any symptoms of paranoia, or any other delusional thinking, A/V hallucinations. Current medications: As stated above. Out-pt follow-up: The patient sees a psychiatrist in [place] in person. She visits him once a month. Her last visit was 2 weeks ago. History of past psychiatric illness: No other than stated in HPI. No history of suicidal or homicidal ideations or behavior. Past medical history: Seizure disorder. Substance abuse history: None MSE: Alert and attentive Orientation X3. Pleasant and cooperative. Psychomotor activity: Speech: Normal tone, quality, and quantity Mood: Depressed and anxious Affect: Appropriate to the mood. SI or HI: None Thought content: Normal Thought process: Normal Perceptual disturbance: Normal Cognition: Intact Judgement and Insight: Intact Diagnosis: Adjustment disorder with mixed emotional state Dysthymia, Possible Borderline personality Disorder. Plan and recommendations: Continue current medications. Hold Wellbutrin. The patient to seek appointment with her psychiatrist within 7 days of discharge.
--- NOTE | 2023-11-27 13:35 | P.DS ---
Providers Date of admission: 11/24/23 00:26 Attending physician: Sabine Kenney MD Consults: 11/24/23 00:25 Consult Physician Urgent Consulting Provider: Adarsh Salcedo Consult Reason/Comments: Seizure activity Do you want consulting provider notified?: Yes, Notify in am 11/24/23 07:58 Consult Physician Routine Consulting Provider: Mark Holcomb Consult Reason/Comments: developed seizure while on abilify and wellbutrin Do you want consulting provider notified?: Yes Primary care physician: Stated None Hospital Course: Final Diagnosis New onset seizure-like activity secondary to psychiatric medication. Patient on Abilify and Wellbutrin dose increased 2 weeks prior to hospitalization Major depression disorder on Abilify and Wellbutrin at home Substance abuse with marijuana and patient was counseled to quit and she agrees Discharge Disposition Patient is stable for discharge. Patient to continue on keppra 500 mg BID and needs to discontinue wellbutrin on discharge. Patient needs to establish with a psychiatrist as well as a neurologist on discharge. Recently moved here from [place] and also needs to follow-up with a family doctor and she agrees. Patient was informed of [place] state law of no driving unless seizure-free for 6 months, climbing ladders or operating dangerous machinery, or unsupervised swimming. Patient to follow-up with neurologist outpatient. Patient will need prolonged EEG as an outpatient. If subsequent EEG comes back normal, then potentially Keppra can be weaned off, but would defer to the neurologist treating her outpatient. Hospital Course This is a pleasant 23 years old female from [place] who was visiting [facility], she has history of depression on Abilify and Wellbutrin, about 2 weeks ago she was still feeling down and thought Wellbutrin was not working so her psychiatrist increased her dose 300 mg up to 450 mg daily. She presents because of seizure- like activity for 2 days on Friday and Friday. Patient cannot remember the events, she remembers only being in the ambulance. As per documents the patient mother witnessed her having tonic-clonic seizure about 3 to 5 minutes with tongue biting but no urine or bowel incontinence. On Friday she found her on the stairs but that was in [place], yesterday she had another seizure witnessed by the mother so she brought her to the hospital. Also looks like the patient has some postictal confusion and tiredness which is now resolved. Currently patient is fully awake and oriented to time place person, she denies headache dizziness, no weakness numbness, no blurred vision or slurred speech No chest pain or dyspnea. No change in urine or bowel habits. No fever or chills. She denies smoking alcohol. She smokes marijuana. She denies feeling signs symptoms of depression currently, she denies delusion or hallucination. She denies suicidal or homicidal ideation. Urine drug screen is positive for marijuana and benzodiazepine. CT of the brain is negative for acute process. MRI brain with and without contrast revealed no evidence of intracranial mass, acute/subacute infarct or abnormal enhancement. Stable appearance of the pituitary gland compared to prior given differences in slice selection and technique. No discrete mass in the pituitary, however there is bulging of the superior margin. EEG was abnormal due to frequent bifrontal slowing suggestive of focal cortical neuronal dysfunction. Intermittent periods of disorganization, suggestive of mild generalized cerebral dysfunction as can be seen with encephalopathy. No clear-cut epileptiform activity was seen. However strongly recommend prolonged EEG for further evaluation. Due to the abnormal EEG, patient was started on seizure medication.Was evaluated by psychiatry who recommended to hold wellbutrin. Cleared for DC. Please see medication reconciliation for a list of current medications. Thank you for allowing us to participate in the care of this patient. The impression and plan of care has been dictated by Norah Spencer, Nurse Practitioner as directed. Dr. Kena MD I have performed a history and physical examination and medical decision making of this patient, discussed the same with the dictator, and agree with the dictators assessment and plan as written, documented as a scribe. Based on total visit time, I have performed more than 50% of this visit. Patient Condition at Discharge: Fair Plan - Discharge Summary New Discharge Prescriptions: New levETIRAcetam [Keppra] 500 mg PO Q12HR #60 tab Continue LORazepam [Ativan] 2 mg PO TID PRN PRN Reason: Anxiety ARIPiprazole [Abilify] 5 mg PO DAILY Loxapine Succinate [Loxapine] 25 mg PO Q4H PRN PRN Reason: Agitation Discontinued buPROPion XL [Wellbutrin XL] 450 mg PO DAILY Discharge Medication List ARIPiprazole [Abilify] 5 mg PO DAILY 11/24/23 [History] LORazepam [Ativan] 2 mg PO TID PRN 11/24/23 [History] Loxapine Succinate [Loxapine] 25 mg PO Q4H PRN 11/24/23 [History] levETIRAcetam [Keppra] 500 mg PO Q12HR #60 tab 11/26/23 [Rx] Follow up Appointment(s)/Referral(s): Kendal Caballero MD [Medical Doctor] - 1 Week (Contact to become established with Neurologist. ) [facility] [NON-STAFF] - 1 Week [facility] [NON-STAFF] - 1-2 Days (Contact to become established as a new patient. ) Patient Instructions/Handouts: Seizure/Epilepsy Discharge Instructions & Follow-Up, New-Onset Seizure in Adults (DC) Activity/Diet/Wound Care/Special Instructions: Need to continue on oral keppra twice a day and follow up with Neurology. Dr Caballero has been recommended to you. Patient was informed of [place] state law of no driving unless seizure-free for 6 months, climbing ladders or operating dangerous machinery, or unsupervised swimming. Patient to follow-up with neurologist outpatient. Patient will need prolonged EEG as an outpatient. If subsequent EEG comes back normal, then potentially Keppra can be weaned off, but would defer to the neurologist treating her outpatient. Discharge Disposition: HOME SELF-CARE
--- NOTE | 2023-11-28 22:28 | P.PN ---
Subjective Progress Note Date: 11/26/23 Patient was seen for a follow-up. Patient denies any further seizures. Patient is laying comfortably in the bed. No new concerns. On obtaining some more details about her seizures, it appears patient states that after she passed out in the kitchen, and had a seizure, next thing she remembers is sitting in the ambulance almost near the hospital. The seizure itself lasted for about 5 minutes (reported to her) but her postictal state lasted for about 40 minutes. Objective - Vital Signs Vital signs: Vital Signs Temp 98.2 F 11/26/23 11:15 Pulse 66 11/26/23 11:15 Resp 14 11/26/23 11:15 BP 115/67 11/26/23 11:15 Pulse Ox 99 11/26/23 11:15 FiO2 Intake & Output 11/25/23 11/26/23 11/26/23 18:59 06:59 18:59 Intake Total 330 Balance 330 Weight 90.9 kg Intake: Oral 330 Other: Voiding Method Toilet # Voids 1 2 - Exam Mental status, speech and language functions are normal. Cranial nerves are normal. - Labs CBC & Chem 7: 11/23/23 21:39 11/23/23 21:39 Assessment and Plan Assessment: * New onset seizure, perhaps provoked due to Wellbutrin. Patient states that Wellbutrin was started a month ago, which may have contributed to the seizure. * Abnormal EEG * Marijuana use * Borderline personality disorder (as per patient report) Plan: * Patient's seizure was likely provoked due to Wellbutrin. Recommended to stop Wellbutrin completely. * MRI brain with and without contrast revealed no evidence of intracranial mass, acute/subacute infarct or abnormal enhancement. Stable appearance of the pituitary gland compared to prior given differences in slice selection and technique. No discrete mass in the pituitary, however there is bulging of the superior margin. * EEG was abnormal due to frequent bifrontal slowing suggestive of focal cortical neuronal dysfunction. Intermittent periods of disorganization, sug gestive of mild generalized cerebral dysfunction as can be seen with encephalopathy. No clear-cut epileptiform activity was seen. However strongly recommend prolonged EEG for further evaluation. * Patient denies headache. Denies any alteration in mentation. We discussed about lumbar puncture to evaluate for possible cause of new onset headache, but patient declined. Patient is afebrile, white cells are normal, no signs of infection. Neck is supple. No real indication for LP. * As patient's EEG was abnormal, we will place her on antiepileptic medication for now. Patient was given Keppra 1000 mg IV x 1 dose followed by Keppra 500 mg twice daily. This was started yesterday. Patient tolerating Keppra well. Denies any side effects. Possible side effects were discussed. * Patient was informed of [place] state law of no driving unless seizure-free for 6 months, climbing ladders or operating dangerous machinery, or unsupervised swimming. * Patient to follow-up with neurologist outpatient. Patient will need prolonged EEG as an outpatient. If subsequent EEG comes back normal, then potentially Keppra can be weaned off, but would defer to the neurologist treating her outpatient. * Neurologically clear for discharge.
== END 2023-11-26 17:37 | disposition home or self-care (01) | DRG 101 ==
LOC: EC 20:07 → 3SCARD 11-24 00:26
PROVIDERS: ADMIT Internal Medicine; ATTEND Internal Medicine
DX: R56.9 Unspecified convulsions (principal); T43.295A Adverse effect of other antidepressants, initial encounter; F60.3 Borderline personality disorder; F41.9 Anxiety disorder, unspecified; F32.9 Major depressive disorder, single episode, unspecified; F12.10 Cannabis abuse, uncomplicated; F43.23 Adjustment disorder with mixed anxiety and depressed mood; F34.1 Dysthymic disorder; Z91.52 Personal history of nonsuicidal self-harm; Z79.899 Other long term (current) drug therapy; Z63.0 Problems in relationship with spouse or partner; Z71.51 Drug abuse counseling and surveillance of drug abuser
CPT/HCPCS: 36415; 70450; 70553; 80053; 80143; 80179; 80306; 81001; 81025; 83735; 84443; 84703; 85025; 93005; 95816; 96361; 96375; 99285